=== PATIENT | male | born 1990 | race Caucasian/White ===

== ENCOUNTER 2017-12-05 21:47 | Emergency (ER) | payer SELFPAY ==
[~2017-12-05] VITALS: Ht 175.3 cm; Wt 62.3 kg
[2017-12-05 23:52] VITALS: BP 140/84
== END 2017-12-05 23:55 | disposition home or self-care (01) ==
LOC: EME 21:47
PROC: 0990XZZ Drainage of Right External Ear, External Approach (ICD-10-PCS; principal; 2017-12-05)
DX: H60.01 Abscess of right external ear (principal); F17.200 Nicotine dependence, unspecified, uncomplicated
CPT/HCPCS: 99281; 99284

== ENCOUNTER 2017-12-08 21:03 | Emergency (ER) | payer SELFPAY ==
[~2017-12-08] VITALS: Ht 175.3 cm; Wt 64.4 kg
[2017-12-09] MEDS ORDERED: NORCO 7.5/321 TABLET PO (01:00)
[2017-12-09] MEDS ORDERED: BACTRIM,SEPT1 TABLET PO (01:00)
[2017-12-09] MEDS ORDERED: KEFLEX500 MG PO (01:00)
[2017-12-09 01:16] VITALS: BP 122/72
== END 2017-12-09 01:17 | disposition home or self-care (01) ==
LOC: EME 21:03
PROC: 0990XZZ Drainage of Right External Ear, External Approach (ICD-10-PCS; principal; 2017-12-08)
DX: M95.11 Cauliflower ear, right ear (principal); H60.11 Cellulitis of right external ear; R11.0 Nausea; F17.200 Nicotine dependence, unspecified, uncomplicated
CPT/HCPCS: 87070; 87075; 87077; 87147; 87186; 87205; J3010

== ENCOUNTER 2017-12-18 13:28 | Inpatient (IN) | payer SELFPAY ==
[~2017-12-18] VITALS: Ht 175.3 cm; Wt 60.6 kg
[~2017-12-18 13:28] MED LIST: BACTRIM,SEPT1 TABLET PO; KEFLEX500 MG PO; NORCO 7.5/321 TABLET PO
[2017-12-18 14:18] LABS: HEMATOCRIT 44.7 % (38.0-50.0); HEMOGLOBIN 15.6 G/DL (12.5-16.6); MCH 31.1 PG (29.0-34.0); MCHC 34.9 G/DL (30.0-36.0); PLATELET COUNT 310 K/uL (156-360); RBC DIS.WIDTH-SD 42.4 % (39-53); RED BLOOD COUNT 5.02 M/uL (4.00-5.50); WHITE BLOOD COUNT 10.6 K/uL (4.1-10.2)
[2017-12-18 14:27] LABS: CHLORIDE 106 mEq/L (99-109); POTASSIUM 4.2 mEq/L (3.7-5.4); SODIUM 138 mEq/L (136-147)
[2017-12-18 14:28] LABS: GLUCOSE 117 mg/dL (70-99)
[2017-12-18 14:32] LABS: CREATININE 0.8 mg/dL (0.6-1.3); GFR ESTIMATE (CALCULATED) > 59 mL/min/ (58.99-99999)
[2017-12-18 14:33] LABS: UREA NITROGEN (BUN) 13 mg/dL (9-23)
[2017-12-18] MEDS ORDERED: KEFLEX500 MG PO (15:51)
[2017-12-18] MEDS ORDERED: BACTRIM,SEPT1 TABLET PO (15:52)
[2017-12-18 17:48] VITALS: BP 122/81
[2017-12-18 19:44] VITALS: BP 126/70
[2017-12-18 23:45] VITALS: BP 105/59
[2017-12-19 03:50] VITALS: BP 100/56
[2017-12-19 06:31] LABS: CHLORIDE 107 MEQ/L (99-109); GFR ESTIMATE (CALCULATED) > 59 mL/min/ (58.99-99999); GLUCOSE 122 mg/dL (70-99); POTASSIUM 4.8 MEQ/L (3.7-5.4); SODIUM 140 MEQ/L (136-147); UREA NITROGEN (BUN) 11 mg/dL (9-23)
[2017-12-19 06:42] LABS: HEMATOCRIT 40.1 % (38.0-50.0); MCH 30.4 PG (29.0-34.0); MCHC 33.7 G/DL (30.0-36.0); MCV 90.3 FL (86-99); PLATELET COUNT 270 K/uL (156-360); RBC DIS.WIDTH-CV 13.2 % (11.8-14.6); RBC DIS.WIDTH-SD 43.6 % (39-53); RED BLOOD COUNT 4.44 M/uL (4.00-5.50); WHITE BLOOD COUNT 8.5 K/uL (4.1-10.2)
[2017-12-19 07:20] LABS: HEMOGLOBIN 13.5 G/DL (12.5-16.6)
[2017-12-19 07:33] VITALS: BP 114/67
[2017-12-19 11:23] VITALS: BP 135/70
[2017-12-19 16:53] VITALS: BP 118/72
[2017-12-19 19:39] VITALS: BP 151/77
[2017-12-19 23:34] VITALS: BP 119/69
[2017-12-20 03:45] VITALS: BP 118/72
[2017-12-20 07:11] VITALS: BP 99/54
[2017-12-20 15:15] VITALS: BP 129/75
[2017-12-20 20:22] VITALS: BP 134/78
[2017-12-20 23:47] VITALS: BP 111/73
[2017-12-21 07:17] VITALS: BP 103/64
[2017-12-21] MEDS ORDERED: CEFTRIAXONE2 G1 IV (14:06)
[2017-12-21] MEDS ORDERED: ENDOCET 5-3251 EACH PO (14:07)
[2017-12-21 15:05] VITALS: BP 136/81
[2017-12-21] MEDS ORDERED: NICOTINE PATCH1 EAC2 TD (16:24)
== END 2017-12-21 18:00 | disposition home or self-care (01) | DRG 156 ==
LOC: EME 13:28 → EDOF 15:25 → 5SOUTH 15:25 → ENRESERV 15:27 → 5SOUTH 16:36
PROVIDERS: Nurse Practitioner Family; Physician Assistant Medical
DX: H60.11 Cellulitis of right external ear (principal); H60.01 Abscess of right external ear; B95.61 Methicillin susceptible Staphylococcus aureus infection as the cause of diseases classified elsewhere; R51 Headache; Z82.49 Family history of ischemic heart disease and other diseases of the circulatory system; Z83.3 Family history of diabetes mellitus; F17.210 Nicotine dependence, cigarettes, uncomplicated
CPT/HCPCS: 70487; 80048; 83605; 85027; 87040; 87070; 87075; 87205; 99281; 99285; J0295; J0690; J0696; J1170; J1885; J2250; J2405; J2765; J3010; J7030; J7050